=== PATIENT | male | born 2000 | race Hispanic/Latino ===

== ENCOUNTER 2024-12-22 19:44 | Emergency (ER) | payer SELFPAY ==
[~2024-12-22] VITALS: Ht 182.9 cm; Wt 83.5 kg
--- NOTE | 2024-12-22 20:22 | ERN ---
General Chief Complaint: Abdominal Pain Stated Complaint: C/O ABD PAIN Time Seen by MD: 20:03 History of Present Illness Initial Comments Patient states he has lower abdominal pain and he points to both sides in the middle of his lower abdomen. He states it has been going on for two months now. He has difficulty with bowel movements he tries to defecate in all he does is passed gas. No other symptoms no fevers no chills no cough no chest pain no nausea no vomiting no change in his urination. Timing/Duration: getting worse Allergies: Coded Allergies: No Known Allergies (Unverified Allergy, Unknown, 12/22/24) Past Medical History Past Medical History: No Pertinent History, Constipation Medical History Other: He thinks he is lactose intolerant Past Surgical History: None Constitutional: (-) chills, (-) diaphoresis, (-) fever, (-) malaise, (-) weakness, (-) other documentation EENTM: (-) eye pain, (-) blurred vision, (-) tearing, (-) double vision, (-) ear pain, (-) ear discharge, (-) nose pain, (-) nose congestion, (-) throat pain, (-) Throat swelling, (-) mouth pain, (-) tooth pain, (-) mouth swelling, (-) other documentation Respiratory: (-) cough, (-) orthopnea, (-) short of breath, (-) stridor, (-) wheezing, (-) other documentation Cardiovascular: (-) chest pain, (-) edema, (-) palpitations, (-) syncope, (-) d yspnea on exertion, (-) other documentation Gastrointestinal/Abdominal: (+) constipation Genitourinary: (-) penile discharge, (-) dysuria, (-) frequency, (-) hematuria, (-) pain, (-) other documentation Musculoskeletal: (-) Neck pain, (-) back pain, (-) Flank Pain, (-) joint pain, (-) joint swelling, (-) muscle pain, (-) muscle stiffness, (-) gout, (-) other documentation Physical Exam General Appearance: (+) no apparent distress Orientation: (+) alert Head/Face Trauma: No Eye: bilateral eye normal inspection, bilateral eye PERRL, bilateral eye EOMI Ear, Nose, Throat: (+) hearing grossly normal, (+) normal ENT inspection Neck: (+) normal inspection, (+) supple Respiratory: (+) chest non-tender, (+) lungs clear, (+) well ventilated Heart: (+) regular, (+) no gallop Vascular: (+) no edema, (+) normal peripheral pulse Gastrointestinal: (+) soft, (+) non-tender, (+) bowel sound present Results Laboratory and Microbiology Lab and Micro Result Laboratory Tests Test 12/22/24 21:44 White Blood Count 8.5 K/uL (4.8-10.8) Red Blood Count 5.04 MIL/uL (4.50-6.20) Hemoglobin 14.0 g/dL (14.0-18.0) Hematocrit 43.2 % (42-54) Mean Corpuscular Volume 85.7 fL (79-99) Mean Corpuscular Hemoglobin 27.8 pg (27.0-33.0) Mean Corpuscular Hemoglobin Concent 32.4 g/dL (32.0-36.0) Red Cell Distribution Width 12.6 % (11.0-15.5) Platelet Count 219 K/uL (130-400) Mean Platelet Volume 12.3 fL (7.5-10.5) H Nucleated Red Blood Cells 0.0 % (0.0-0.19) Sodium Level 139 mmol/L (136-145) Potassium Level 3.8 mmol/L (3.5-5.1) Chloride Level 101 mmol/L (101-111) Carbon Dioxide Level 31 mmol/L (21-32) Blood Urea Nitrogen 20 mg/dL (7-18) H Creatinine 0.9 mg/dL (0.5-1.3) Glomerular Filtration Rate Calc 123 mL/min (>90) Random Glucose 100 mg/dL (70-105) Total Calcium 9.3 mg/dL (8.5-10.1) MDM We will start with a simple KUB. I need to re-examine the patient once I can get him into a room right now he is in the fast track area. KUB ordered at 8:22 p.m. Patient's laboratory analysis is normal normal electrolytes normal CBC. KUB does show possible impaction they it is not definite. He has no distended large or small bowel. Repeating the patient's abdominal exam tenting stomach muscles does not seem to decrease the pain although he is not in pain right now. I doubt that a CT scan would be revealing. I think the patient needs to go see a chief librarian work with blind to figure out if he has IBD lactose intolerance celiac or some other intestinal disease that would not be visible on a CT scan. Just to be thorough I will write a prescription and recommend GoLYTELY to help with his possible impaction. ED Course Orders Procedure Category Date Status Time Abd 1vw RAD 12/22/24 Resulted 20:22 Basic Metabolic Panel LAB 12/22/24 Complete 21:37 Cyclobenzaprine Hcl PHA 12/22/24 Complete (Cyclobenzaprine Hcl 22:00 Cbc Without LAB 12/22/24 Complete Differential 21:37 Current Medications Medications (Trade) Dose Ordered Sig/Osman Route PRN Reason Start Time Stop Time Status Last Admin Dose Admin Cyclobenzaprine HCl (Cyclobenzaprine HCl) 10 mg ONCE ONCE PO 12/22/24 22:00 12/22/24 22:01 DC 12/22/24 22:19 Vital Signs Date Time Temp Pulse Resp B/P (MAP) Pulse Ox O2 Delivery O2 Flow Rate FiO2 12/22/24 19:56 98.1 75 20 124/83 98 Room Air* 0 21 12/22/24 19:46 98.1 75 20 124/83 98 Room Air DX & DISP Disposition: Discharge Departure Impression: Primary Impression: Abdominal pain Condition: Stable Assign Patient to: Please follow-up with a chief librarian work with blind. So purchased some GoLYTELY and use it daily for two weeks to see if it helps. Additional Instructions: Please return to the emergency room if you have intractable nausea or vomiting and can not keep yourself well hydrated. Also if you have blood in your stool please come back to the ED. Referrals: SELF,REFERRAL (PCP) TAM HDALIWAL MD Dec 22, 2024 20:22
[2024-12-22 21:50] LABS: HEMATOCRIT 43.2 % (42-54); MEAN CORPUSCULAR HEMOGLOBIN 27.8 pg (27.0-33.0); MEAN CORPUSCULAR HGB CONC 32.4 g/dL (32.0-36.0); MEAN CORPUSCULAR VOLUME 85.7 fL (79-99); RED BLOOD CELL COUNT(AUTO) 5.04 MIL/uL (4.50-6.20); RED CELL DISTRIBUTION WIDTH 12.6 % (11.0-15.5); WHITE BLOOD COUNT (AUTO) 8.5 K/uL (4.8-10.8)
--- NOTE | 2024-12-22 21:52 | HMCIMG ---
ABD 1VW HISTORY: Constipation COMPARISON: None FINDINGS: A frontal projection of the abdomen was obtained. A nonspecific bowel gas pattern is seen. Fecal material is seen in the colon. IMPRESSION: 1. A nonspecific bowel gas pattern is seen.
[2024-12-22 22:10] LABS: CREATININE 0.9 mg/dL (0.5-1.3); POTASSIUM 3.8 mmol/L (3.5-5.1)
[2024-12-22] MEDS: CYCLOBENZAPRINE HCL 10 MG TABLET PO ONE (22:19)
[2024-12-22 23:58] VITALS: BP 115/68; PULSE 74; RESP 16; TEMP 97.2; O2SAT 100
== END 2024-12-23 00:04 | disposition home or self-care (01) ==
LOC: EDH 19:44
DX: R10.31 Right lower quadrant pain (principal); R10.32 Left lower quadrant pain
CPT/HCPCS: 36415; 74018; 80048; 85027; 99284